=== PATIENT | female | born 1995 | race Two or more races ===

== ENCOUNTER 2021-04-08 19:39 | Emergency (ER) | payer OTHER ==
[~2021-04-08] VITALS: Ht 152.4 cm; Wt 68.0 kg
[2021-04-09] MEDS ORDERED: PYRIDIUM DS200 MG PO (04:05)
[2021-04-09] MEDS ORDERED: CIPRO500 MG PO (04:05)
== END 2021-04-09 04:36 ==
LOC: ER 19:39
DX: N39.0 Urinary tract infection, site not specified (principal)

== ENCOUNTER → 2021-06-26 | Emergency (ER) | payer OTHER ==
[~2021-06-26] VITALS: Ht 152.4 cm; Wt 73.9 kg
[~2021-06-26] MED LIST: CIPRO500 MG PO; PYRIDIUM DS200 MG PO; TERCONAZOLE20 GM VAG
== END | disposition home or self-care (01) ==
LOC: ER 11:42
DX: B37.3 Candidiasis of vulva and vagina (principal)

== ENCOUNTER 2021-08-20 19:01 | Emergency (ER) | payer OTHER ==
[~2021-08-20] VITALS: Ht 152.4 cm; Wt 70.8 kg
[2021-08-20] MEDS ORDERED: NASONEX17 GM NASAL (22:18)
[2021-08-20] MEDS ORDERED: CIPRO500 MG PO (22:18)
[2021-08-20] MEDS ORDERED: ZYRTEC10 M3 PO (22:18)
== END 2021-08-20 22:22 | disposition home or self-care (01) ==
LOC: ER 19:01
DX: N39.0 Urinary tract infection, site not specified (principal); J32.8 Other chronic sinusitis; Z20.822 Contact with and (suspected) exposure to COVID-19

== ENCOUNTER 2021-08-24 10:14 | Emergency (ER) | payer OTHER ==
[~2021-08-24] VITALS: Ht 152.4 cm; Wt 70.8 kg
[~2021-08-24 10:14] MED LIST changes: +NASONEX17 GM NASAL; +ZYRTEC10 M3 PO
== END 2021-08-24 12:01 | disposition home or self-care (01) ==
LOC: ER 10:14
DX: J03.90 Acute tonsillitis, unspecified (principal)

== ENCOUNTER 2023-03-19 19:47 | Emergency (ER) | payer OTHER ==
[~2023-03-19] VITALS: Ht 152.4 cm; Wt 67.1 kg
== END 2023-03-20 05:30 | disposition left against medical advice (07) ==
LOC: ER 19:47
DX: R53.81 Other malaise (principal)

== ENCOUNTER 2023-10-13 17:59 | Emergency (ER) | payer OTHER ==
[~2023-10-13] VITALS: Ht 154.9 cm; Wt 65.8 kg
[2023-10-13] MEDS ORDERED: HYDROCHLOROTHIA25 MG PO (18:42)
[2023-10-13] MEDS ORDERED: METOCLOPRAMIDE HCL 5 MG/ML VIAL IM STA (18:57)
[2023-10-13] MEDS ORDERED: KETOROLAC TROMETHAMINE 60 MG VIAL IM STA (18:57)
== END 2023-10-13 19:32 | disposition home or self-care (01) ==
LOC: ER 17:59
DX: G43.829 Menstrual migraine, not intractable, without status migrainosus (principal)
CPT/HCPCS: 93005; 96372; 99282; J1885; J2765

== ENCOUNTER 2024-10-06 19:41 | Emergency (ER) | payer OTHER ==
[~2024-10-06] VITALS: Ht 152.4 cm; Wt 69.9 kg
[~2024-10-06 19:41] MED LIST changes: +HYDROCHLOROTHIA25 MG PO
[2024-10-06 20:36] LABS: HEMOGLOBIN 14.4 g/dL (12.0-15.00); MEAN CELL VOLUME 86.4 fL (80.00-100.00); MEAN CORPUSCULAR HEMOGLOBIN 30.3 pg (27.00-32.0); MEAN CORPUSCULAR HGB CONC 35.1 g/dl (32.0-36.0); PLATELET COUNT 380 K/uL (150-450); RED BLOOD COUNT 4.75 M/uL (4.00-6.00); RED CELL DISTRIBUTION WIDTH 14.6 % (11.5-14.5)
[2024-10-06 21:03] LABS: PH,URINE 5.5 (5.0-8.0); URINE APPEARANCE Clear; URINE BILIRRUBIN Negative (NEGATIVE); URINE BLOOD Trace; URINE COLOR Yellow; URINE GLUCOSE Negative (NEGATIVE); URINE KETONE Negative (NEGATIVE); URINE LEUKOCYTE Trace; URINE NITRATE Negative; URINE PROTEIN Negative (NEGATIVE)
[2024-10-06 21:07] LABS: URINE BACTERIA 735.4 uL (0.0-1933); URINE CAST 0.29 uL (0.0-1.40); URINE EPITHELIAL CELLS 11.3 uL (0.0-38.8); URINE RBC 25.4 uL (0.0-20.8); URINE WBC 73.1 uL (0.0-23.2)
[2024-10-06 21:22] LABS: CALCIUM 9.3 mg/dL (8.5-10.1); CREATININE SERUM 0.91 mg/dL (0.55-1.02); GFR 73.61; POTASSIUM 3.99 mEq/L (3.5-5.1)
[2024-10-06] MEDS ORDERED: CEFTRIAXONE SODIUM 1,000 MG VIAL IM STA (22:30)
[2024-10-06] MEDS ORDERED: KETOROLAC TROMETHAMINE 30 MG VIAL IM STA (22:34)
[2024-10-06] MEDS ORDERED: LIDOCAINE HCL 1% 10ML VIAL ONE (22:39)
[2024-10-06] MEDS ORDERED: CEFTRIAXONE SODIUM 1,000 MG VIAL ONE (22:39)
[2024-10-06] MEDS ORDERED: KETOROLAC TROMETHAMINE 30 MG VIAL ONE (22:39)
== END 2024-10-06 22:44 | disposition home or self-care (01) ==
LOC: ER 19:44
PROVIDERS: General Practice
DX: N39.0 Urinary tract infection, site not specified (principal)